=== PATIENT | male | born 1990 | race Hispanic/Latino ===

== ENCOUNTER 2024-11-20 18:08 | Emergency (ER) | payer SELFPAY ==
[~2024-11-20] VITALS: Ht 177.8 cm; Wt 59.0 kg
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
[2024-11-20] MEDS: ketOROlac 60 MG VIAL (30MG/ML) IM ONE (18:52)
--- NOTE | 2024-11-20 18:52 | NUR ---
RECIEVED PT NOW
[2024-11-20] MEDS ORDERED: IBUP-2077 PO (19:10)
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
[2024-11-20 19:39] VITALS: BP 158/74; PULSE 86; RESP 18; TEMP 98.4; O2SAT 98
== END 2024-11-20 19:43 | disposition home or self-care (01) ==
LOC: EDH 18:08
DX: S92.002A Unspecified fracture of left calcaneus, initial encounter for closed fracture (principal); W18.39XA Other fall on same level, initial encounter; Y93.89 Activity, other specified; Y92.89 Other specified places as the place of occurrence of the external cause; Y99.8 Other external cause status
CPT/HCPCS: 99284; 29515; 73610; 73630; 96372; J1885; 29125